=== PATIENT | female | born 1975 | race Caucasian/White ===

== ENCOUNTER 2019-12-08 21:42 | Emergency (ER) | payer OTHER ==
[~2019-12-08] VITALS: Ht 157.5 cm; Wt 76.2 kg
[2019-12-08 21:53] VITALS: Ht 157.5 cm; Wt 76.2 kg
[2019-12-08 22:43] LABS: BASOPHIL % 0.8 % (0-2); PLATELET COUNT 206 x10^3mcL (130-400); RED CELL DISTRIBUTION WIDTH 14.7 % (11.5-14.5)
[2019-12-08 22:55] LABS: CALCIUM 8.5 mg/dL (8.5-10.1); CARBON DIOXIDE 26.7 mmol/L (21-32); CHLORIDE SERUM 106 mmol/L (98-107); CREATININE SERUM 0.7 mg/dL (0.6-1.0); GFR1 > 60 mL/min; GLUCOSE SERUM 101 mg/dL (74-106); POTASSIUM SERUM 3.7 mmol/L (3.5-5.1); SODIUM SERUM 140 mmol/L (136-145)
[2019-12-08 22:59] LABS: ALBUMIN 3.6 g/dL (3.4-5.0); ALKALINE PHOSPHATASE 85 U/L (46-116); ALT/SGPT 100 U/L (14-59); AST/SGOT 28 U/L (15-37); BILIRUBIN TOTAL 0.3 mg/dL (0.20-1.00); TOTAL PROTEIN, SERUM 7.6 g/dL (6.4-8.2)
[2019-12-08 23:24] LABS: UA SPECIFIC GRAVITY 1.025 (1.005-1.035); microscopic required? YES; urine erythrocyte 3+ (NEGATIVE)
[2019-12-09 02:50] VITALS: BP 155/99
== END 2019-12-09 02:50 | disposition home or self-care (01) ==
LOC: ED 21:42
PROVIDERS: Emergency Medicine
DX: R51 Headache (principal)
CPT/HCPCS: 36415; J8597